=== PATIENT | female | born 1965 | race Caucasian/White ===

== ENCOUNTER 2020-04-06 16:50 | Emergency (ER) | payer BC ==
--- NOTE | 2020-04-06 16:56 | EDM.PDOC ---
ED HPI GENERAL MEDICAL PROBLEM - General Chief Complaint: Laceration Stated Complaint: laceration/dog bite Time Seen by Provider: 04/06/20 16:50 Source of Information: Reports: Patient, Old Records ([facility] chart/EMR) History Limitations: Reports: No Limitations - History of Present Illness INITIAL COMMENTS - FREE TEXT/NARRATIVE: The patient drove herself to the emergency room for evaluation of a dog bite of her left hand, which occurred at her home at about 2:30 PM this afternoon. She did clean the dog bite out with soap and water at home with no other treatment to this point. The patient's dog's immunizations, including rabies, etc. are up-to-date by her history with the patient also receiving to tetanus boosters during this last year. The dog has bitten her once before and also the patient once before secondary to aggressive food behavior, which also occurred today, with no other change in behavior, etc.. Note current increased stressors secondary to their other dog having to be put to sleep earlier in the week. No recent history of abdominal pain, heartburn, nausea, diarrhea, melena, gross hematochezia, or any food intolerance, including fatty foods, etc.. The patient also denies any recent fever, cough, wheezing, dyspnea, etc.. The patient is right-handed. Onset: Today, Sudden Onset Date: 04/06/20 Onset Time: 14:30 Duration: Constant Location: Reports: Upper Extremity, Left. Denies: Head, Face, Neck, Chest, Abdomen, Back, Pelvis, Radiates to Quality: Reports: Same as Previous Episode, Throbbing Severity: Mild Improves with: Reports: None Worsens with: Reports: None Context: Reports: Trauma (As above) Associated Symptoms: Reports: No Other Symptoms. Denies: Confusion, Chest Pain, Cough, Diaphoresis, Fever/Chills, Headaches, Loss of Appetite, Malaise, Nausea/Vomiting, Rash, Seizure, Shortness of Breath, Syncope, Weakness Treatments PRINCIPAL ENGINEER: Reports: Other (see below) (As above) Left Hand Pain Score (Numeric/FACES): 3 - Related Data Allergies Allergy/AdvReac Type Severity Reaction Status Date / Time ciprofloxacin [From Cipro] AdvReac Rash Verified 04/06/20 17:06 codeine AdvReac Vomiting Verified 04/06/20 17:06 metformin AdvReac Body Aches Verified 04/06/20 17:06 Penicillins AdvReac Rash Verified 04/06/20 17:06 Home Meds: Home Meds Aspirin [Children's Aspirin] 81 mg PO DAILY 04/06/20 [History] Cetirizine [ZyrTEC] 10 mg PO DAILY 04/06/20 [History] Clindamycin HCl 150 mg PO TID #30 capsule 04/06/20 [Rx] Losartan [Cozaar] 25 mg PO DAILY 04/06/20 [History] Omeprazole 40 mg PO DAILY 04/06/20 [History] atorvaSTATin [Lipitor] 10 mg PO BEDTIME 04/06/20 [History] glipiZIDE [Glucotrol XL] 5 mg PO BRK 04/06/20 [History] hydroCHLOROthiazide [Hydrochlorothiazide] 25 mg PO DAILY 04/06/20 [History] Past Medical History HEENT History: Reports: Allergic Rhinitis, Impaired Vision, Other (See Below) Other HEENT History: The patient wears glasses. Cardiovascular History: Reports: High Cholesterol, Hypertension Gastrointestinal History: Reports: GERD Musculoskeletal History: Reports: Osteoarthritis Endocrine/Metabolic History: Reports: Diabetes, Type II, Obesity/BMI 30+. Denies: Diabetes, Type I, Diabetes Mellitus, Type 3c, IDDM Social & Family History - Tobacco Use Tobacco Use Status *Q: Never Tobacco User Tobacco Use Within Last Twelve Months: No Used Tobacco, but Quit: No Smoking Cessation Information Provided To Patient: No Second Hand Smoke Exposure: No Second Hand Smoke Education Provided: No - Living Situation & Occupation Living situation: Reports: , with Family Occupation: Employed (Hospice nurse) ED ROS GENERAL - Review of Systems Review Of Systems: Comprehensive ROS is negative, except as noted in HPI. ED EXAM, SKIN/RASH Exam: See Below Exam Limited By: No Limitations General Appearance: Alert, WD/WN, No Apparent Distress Head: Atraumatic, Normocephalic. No: Facial Swelling, Facial Tenderness, Sinus Tenderness Neck: Normal Inspection, Supple, Non-Tender, Full Range of Motion. No: Lymphadenopathy (L), Lymphadenopathy (R), Thyromegaly Respiratory/Chest: No Respiratory Distress, Lungs Clear, Normal Breath Sounds, No Accessory Muscle Use, Chest Non-Tender. No: Pleural Rub, Retractions Cardiovascular: Normal Peripheral Pulses, Regular Rate, Rhythm, No Edema, No Gallop, No JVD, No Murmur, No Rub. No: Gallop/S3, Gallop/S4, Friction Rub Peripheral Pulses: 2+: Radial (L), Radial (R) GI/Abdominal: Normal Bowel Sounds, Soft, Non-Tender, No Organomegaly, No Distention, No Abnormal Bruit, No Mass, Other (Obese). No: Guarding (Female) Exam: Deferred Rectal (Female) Exam: Deferred Back Exam: Normal Inspection, Full Range of Motion. No: CVA Tenderness (L), CVA Tenderness (R), Muscle Spasm Extremities: Non-Tender (Mild palpation left hand secondary to dog bites), No Pedal Edema, Normal Capillary Refill, Limited Range of Motion (Mild in left hand secondary to swelling and discomfort), Other (Multiple dog bites over the dorsal surfaces of her left hand with at least 6 superficial bites noted with laceration about 0.5 cm with space between digits #1 and 2 with no foreign body, joint/tendon involvement, sign of fracture, etc. Note mild to moderate dorsal hand swelling and ecchymosis). No: Joint Swelling, Benedicto's Sign, Increased Warmth, Redness Neurological: Alert, Oriented, CN II-XII Intact, Normal Cognition, Normal Gait, Normal Reflexes, No Motor/Sensory Deficits Psychiatric: Normal Affect, Normal Mood Skin: Wound/Incision (Dog bites as above) Location, Skin: Upper Extremity, Left Characteristics: Other Associated features: Tenderness (As above), Swelling (As above) Lymphatic: No Adenopathy Course - Vital Signs Last Recorded V/S: Last Vital Signs Temp 36.4 C 04/06/20 16:53 Pulse 77 04/06/20 16:53 Resp 18 04/06/20 16:53 BP 127/84 04/06/20 17:34 Pulse Ox 99 04/06/20 16:53 Vital Signs - 24 hr 04/06/20 04/06/20 16:53 17:34 Temperature [ 36.4 C Temporal] Pulse, 77 Peripheral [ Pulse Oximetry] Respiratory 18 Rate Blood Pressure 163/83 H 127/84 [Left Upper Arm ] O2 Sat by Pulse 99 Oximetry - Orders/Labs/Meds Orders: Active Orders 24 hr Category Date Time Status Hand Comp Min 3V Lt [CR] Stat Exams 04/06/20 16:56 Taken Obtain Past Medical Record [OM.PC] Routine Oth 04/06/20 16:56 Active Labs: None Meds: Medications Discontinued Medications Generic Name Dose Route Start Last Admin Trade Name Verenice PRN Reason Stop Dose Admin Clindamycin HCl 300 mg 04/06/20 16:57 04/06/20 17:44 Cleocin PO 04/06/20 16:58 300 mg ONETIME ONE Administration Neomycin/Polymyxin/Bacitracin 1 each 04/06/20 17:39 04/06/20 17:44 Triple Antibiotic Oint TOP 04/06/20 17:40 1 each ONETIME ONE Administration - Radiology Interpretation Free Text/Narrative:: X-rays her left hand, complete, shows no evidence of fracture, dislocation, foreign body, etc. Departure - Departure Time of Disposition: 18:05 Disposition: Home, Self-Care 01 Condition: Good Clinical Impression: Osteoarthritis, Hypertension Dog bite Qualifiers: Encounter type: initial encounter Qualified Code(s): W54.0XXA - Bitten by dog, initial encounter Diabetes mellitus Qualifiers: Diabetes mellitus type: type 2 Diabetes mellitus marine oil terminal superintendent insulin use: without marine oil terminal superintendent use Diabetes mellitus complication status: without complication Qualified Code(s): E11.9 - Type 2 diabetes mellitus without complications - Discharge Information *PRESCRIPTION DRUG MONITORING PROGRAM REVIEWED*: Not Applicable *COPY OF PRESCRIPTION DRUG MONITORING REPORT IN PATIENT MARIAH: Not Applicable Prescriptions: Clindamycin HCl 150 mg PO TID #30 capsule Instructions: Animal Bite, Adult, [id number] Referrals: Rafia Cerrato PA [Primary Care Provider] - Forms: ED Department Discharge Additional Instructions: 1. Follow up with your regular provider in 10-14 days as needed, if symptoms persist. Bring these discharge instructions with you to that visit.. 2. Antibacterial soap wash/soak with subsequent antibacterial dressing such as Neosporin, etc. as directed 2 times per day until the wound or laceration site completely heals. Keep the area clean and dry with activity restrictions as discussed. Never use hydrogen peroxide for wound care. 3. Tylenol 650 mg by mouth every 4 hours and/or OTC ibuprofen 2-3 tabs by mouth every 6 hours with food as directed./needed. You may stagger these medications for 48-72 hours only, which essentially means that you are receiving a pain medication about every 2 hours. 4. Immediately after this visit verify that your cellular telephone's voicemail has been activated and is empty. Also verify that your home telephone's answering machine is operating properly and has space to receive messages. Note that it is sometimes necessary for us to be able to contact you at a later date to discuss your medical care. 5. Please remember that we are ALWAYS here for you and want to answer any questions you may have. Feel free to call the hospital any time and we call you back INDIRA. Sepsis Event Note (ED) - Focused Exam Vital Signs: Vital Signs Temp Pulse Resp BP Pulse Ox 04/06/20 17:34 127/84 04/06/20 16:53 36.4 C 77 18 163/83 H 99 - Problem List & Annotations (1) Dog bite SNOMED Code(s): 619202853, 542796615 Code(s): W54.0XXA - BITTEN BY DOG, INITIAL ENCOUNTER Status: Acute Priority: High Onset Date: 04/06/20 Annotation/Comment:: Her tetanus booster is up-to-date as is her dog's rabies shots by her history. The patient was counseled on her patch repetitive biting with safety precautions, animal sacrifice, etc. discussed. Various therapeutic options were also discussed, including loose laceration repair, etc. although wound care would be more beneficial if no laceration repair was conducted. Her lacerations were soaked extensively in Betadine solution with subsequent Neosporin dressing placed by the nurse. Wound care, activity restrictions, etc. were discussed. Clindamycin 300 mg p.o. given in the emergency room with further clindamycin therapy on an outpatient basis as per discharge instructions. She does not need a work excuse by her history. Note that the patient did have a video conference call with her regular provider, Rafia Cerrato PA-C, at the [facility], shortly prior to our evaluation in this facility with recommendation of further evaluation for possible laceration repair. Qualifiers: Encounter type: initial encounter Qualified Code(s): W54.0XXA - Bitten by dog, initial encounter (2) Diabetes mellitus SNOMED Code(s): 44471703 Code(s): E11.9 - TYPE 2 DIABETES MELLITUS WITHOUT COMPLICATIONS Status: Chronic Priority: Medium Annotation/Comment:: Stable by patient history Qualifiers: Diabetes mellitus type: type 2 Diabetes mellitus custodial insulin use: without marine oil terminal superintendent use Diabetes mellitus complication status: without complication Qualified Code(s): E11.9 - Type 2 diabetes mellitus without complications (3) Hypertension SNOMED Code(s): 66980208 Code(s): I10 - ESSENTIAL (PRIMARY) HYPERTENSION Status: Chronic Priority: Medium Annotation/Comment:: Blood pressure was initially somewhat elevated in the emergency room, however normalized without further treatment. Continue to observe closely by her regular provider. Qualifiers: Hypertension type: essential hypertension Qualified Code(s): I10 - Essential (primary) hypertension (4) Osteoarthritis SNOMED Code(s): 352076005 Code(s): M19.90 - UNSPECIFIED OSTEOARTHRITIS, UNSPECIFIED SITE Status: Chronic Priority: Medium Annotation/Comment:: Otherwise stable by patient history. Qualifiers: Osteoarthritis location: multiple joints Osteoarthritis type: primary Qualified Code(s): M89.49 - Other hypertrophic osteoarthropathy, multiple sites - Problem List Review Problem List Initiated/Reviewed/Updated: Yes - My Orders Last 24 Hours: My Active Orders 04/06/20 16:56 Hand Comp Min 3V Lt [CR] Stat Obtain Past Medical Record [OM.PC] Routine - Assessment/Plan Last 24 Hours: My Active Orders 04/06/20 16:56 Hand Comp Min 3V Lt [CR] Stat Obtain Past Medical Record [OM.PC] Routine Assessment:: As above Plan: As above. Extensive precautions were given to the patient, who is in agreement with the treatment plan. See Patient Instructions for further treatment and plan.
[2020-04-06] MEDS ORDERED: Clindamycin HCl 150 MG Cap PO ONE (16:57)
[2020-04-06] MEDS ORDERED: Bacitracin/Neomycin/Polymyxin B Oint 0.9 GM U/D Packet TOP ONE (17:39)
== END 2020-04-06 18:00 | disposition home or self-care (01) ==
LOC: LL.ED 16:50
DX: S61.452A Open bite of left hand, initial encounter (principal); M19.90 Unspecified osteoarthritis, unspecified site; I10 Essential (primary) hypertension; E11.9 Type 2 diabetes mellitus without complications; E78.00 Pure hypercholesterolemia, unspecified; K21.9 Gastro-esophageal reflux disease without esophagitis; E66.9 Obesity, unspecified; Z88.1 Allergy status to other antibiotic agents; Z88.5 Allergy status to narcotic agent; Z88.8 Allergy status to other drugs, medicaments and biological substances; Z88.0 Allergy status to penicillin; Z79.82 Long term (current) use of aspirin; Z79.84 Long term (current) use of oral hypoglycemic drugs; Z79.899 Other long term (current) drug therapy; W54.0XXA Bitten by dog, initial encounter; Y92.009 Unspecified place in unspecified non-institutional (private) residence as the place of occurrence of the external cause
CPT/HCPCS: 73130-LT; 99283; 99283-25; A9270-GY

== ENCOUNTER 2020-04-07 09:53 | Emergency (ER) | payer BC ==
[2020-04-07] MEDS ORDERED: Sodium Chloride 0.9% 10 ML Syringe FLUSH PRN (09:55)
[2020-04-07 10:29] LABS: CHLORIDE,CL 101 mmol/L (98-107); SODIUM,NA 137 mmol/L (136-145)
[2020-04-07] MEDS ORDERED: Clindamycin in 0.9 % Sod Chlor 600 MG in Premix Bag 1 BAG IV ONE ×2 (10:52)
--- NOTE | 2020-04-07 11:24 | EDM.PDOC ---
ED HPI GENERAL MEDICAL PROBLEM - General Chief Complaint: Laceration Stated Complaint: dogbite Time Seen by Provider: 04/07/20 10:00 Source of Information: Reports: Patient History Limitations: Reports: No Limitations - History of Present Illness INITIAL COMMENTS - FREE TEXT/NARRATIVE: Pt seen in ER yesterday for dog bite to left hand Wounds left open Pt given oral clindamycin Pt now with markedly increased pain and swelling Limited ROM bot h flexion and extension Some mild parathesias Increased bruising Minimal clear drainage from wounds Duration: Getting Worse Context: Reports: Other (Dog bite to left hand) Treatments MACADAM RAKER: Reports: Acetaminophen, NSAIDS Other Treatments MACADAM RAKER: Tylenol 1,000mg last @ 0500, Ibuprofen last at 0700 Left Hand Pain Score (Numeric/FACES): 8 - Related Data Allergies Allergy/AdvReac Type Severity Reaction Status Date / Time ciprofloxacin [From Cipro] AdvReac Rash Verified 04/07/20 10:06 codeine AdvReac Vomiting Verified 04/07/20 10:06 metformin AdvReac Body Aches Verified 04/07/20 10:06 Penicillins AdvReac Rash Verified 04/07/20 10:06 Home Meds: Home Meds Aspirin [Children's Aspirin] 81 mg PO DAILY 04/06/20 [History] Cetirizine [ZyrTEC] 10 mg PO DAILY 04/06/20 [History] Clindamycin HCl 150 mg PO TID #30 capsule 04/06/20 [Rx] Losartan [Cozaar] 25 mg PO DAILY 04/06/20 [History] Omeprazole 40 mg PO DAILY 04/06/20 [History] atorvaSTATin [Lipitor] 10 mg PO BEDTIME 04/06/20 [History] glipiZIDE [Glucotrol XL] 5 mg PO BRK 04/06/20 [History] hydroCHLOROthiazide [Hydrochlorothiazide] 25 mg PO DAILY 04/06/20 [History] Past Medical History HEENT History: Reports: Allergic Rhinitis, Impaired Vision, Other (See Below) Other HEENT History: The patient wears glasses. Cardiovascular History: Reports: High Cholesterol, Hypertension Respiratory History: Reports: None Gastrointestinal History: Reports: GERD Genitourinary History: Reports: None Musculoskeletal History: Reports: Osteoarthritis Neurological History: Reports: None Psychiatric History: Reports: None Endocrine/Metabolic History: Reports: Diabetes, Type II, Obesity/BMI 30+ Immunologic History: Reports: None Dermatologic History: Reports: None - Past Surgical History Female Surgical History: Reports: None Social & Family History - Tobacco Use Tobacco Use Status *Q: Never Tobacco User Second Hand Smoke Exposure: No - Caffeine Use Caffeine Use: Reports: Coffee, Soda - Recreational Drug Use Recreational Drug Use: No - Living Situation & Occupation Living situation: Reports: , with Family Occupation: Employed (Hospice nurse) ED ROS GENERAL - Review of Systems Review Of Systems: See Below Musculoskeletal: Reports: Other (Left hand with dog bite) ED EXAM, SKIN/RASH Exam: See Below Exam Limited By: No Limitations Extremities: Joint Swelling, Limited Range of Motion, Increased Warmth, Other (Left hand with swelling to dorsum of hand Multiple bite wounds No drainage Increased erythema and ecchymosis Limited ROM Mild parathesias) Course - Vital Signs Last Recorded V/S: Last Vital Signs Temp 97.8 F 04/07/20 10:00 Pulse 83 04/07/20 10:00 Resp 16 04/07/20 10:00 BP 158/79 H 04/07/20 10:00 Pulse Ox 100 04/07/20 10:00 - Orders/Labs/Meds Orders: Active Orders 24 hr Category Date Time Status CULTURE BLOOD [BC] Stat Lab 04/07/20 09:54 Ordered CULTURE BLOOD [BC] Stat Lab 04/07/20 10:15 Received Sodium Chloride 0.9% [Saline Flush] Med 04/07/20 09:55 Active 10 ml FLUSH ASDIRECTED PRN Blood Culture x2 Reflex Set [OM.PC] Stat Oth 04/07/20 09:54 Ordered Saline Lock Insert [OM.PC] Routine Oth 04/07/20 09:55 Ordered Medication Orders Sodium Chloride (Saline Flush) 10 ml FLUSH ASDIRECTED PRN PRN Reason: Keep Vein Open Last Admin: 04/07/20 11:02 Dose: 10 ml Documented by: JOSE RAUL Labs: Laboratory Tests 04/07/20 04/07/20 04/07/20 Range/Units 10:00 10:00 10:00 WBC 9.8 (4.0-10.2) K/uL RBC 4.57 (3.77-5.09) M/uL Hgb 13.3 (11.7-15.5) g/dL Hct 38.8 (34.0-46.0) % MCV 84.9 (84.0-98.0) fL MCH 29.1 (28.2-33.3) pg MCHC 34.3 (31.7-36.0) g/dL RDW 12.3 (11.2-14.1) % Plt Count 195 (150-350) K/uL Neut % (Auto) 73.1 (45.0-80.0) % Lymph % (Auto) 17.8 (10.0-50.0) % [place] % (Auto) 8.1 (2.0-14.0) % Eos % (Auto) 0.7 (0.0-5.0) % Baso % (Auto) 0.3 (0.0-2.0) % Neut # (Auto) 7.18 H (1.40-7.00) K/uL Lymph # (Auto) 1.75 (0.50-3.50) K/uL [place] # (Auto) 0.80 (0.00-1.00) K/uL Eos # (Auto) 0.07 (0.00-0.50) K/uL Baso # (Auto) 0.03 (0.00-0.20) K/uL Sodium 137 (136-145) mmol/L Potassium 3.4 L (3.5-5.1) mmol/L Chloride 101 (98-107) mmol/L Carbon Dioxide 25.5 (21.0-32.0) mmol/L BUN 18 (7-18) mg/dL Creatinine 0.60 (0.51-1.17) mg/dL Est Cr Clr Drug Dosing 84.78 mL/min Estimated GFR (MDRD) > 60 mL/min Glucose 148 H (74-106) mg/dL Lactic Acid 1.8 (0.4-2.0) mmol/L Calcium 9.4 (8.5-10.1) mg/dL Meds: Medications Generic Name Dose Route Start Last Admin Trade Name Freq PRN Reason Stop Dose Admin Sodium Chloride 10 ml 04/07/20 09:55 04/07/20 11:02 Saline Flush FLUSH 10 ml ASDIRECTED PRN Administration Keep Vein Open Discontinued Medications Generic Name Dose Route Start Last Admin Trade Name Freq PRN Reason Stop Dose Admin Clindamycin/Sodium Chloride 50 mls @ 150 mls/hr 04/07/20 10:52 04/07/20 10:59 600 mg/ Premix IV 04/07/20 11:11 150 mls/hr ONETIME ONE Administration - Re-Assessments/Exams Free Text/Narrative Re-Assessment/Exam: 04/07/20 11:26 Pt given IV Clindamycin in ER D/W [facility] ER Will accept in transfer Departure - Departure Time of Disposition: 11:30 Disposition: DC/Tfer to [facility] 02 Clinical Impression: Dog bite Qualifiers: Encounter type: initial encounter Qualified Code(s): W54.0XXA - Bitten by dog, initial encounter - Discharge Information *PRESCRIPTION DRUG MONITORING PROGRAM REVIEWED*: Not Applicable *COPY OF PRESCRIPTION DRUG MONITORING REPORT IN PATIENT MARIAH: Not Applicable Referrals: Rafia Cerrato PA [Primary Care Provider] - Sepsis Event Note (ED) - Evaluation Sepsis Screening Result: No Definite Risk - Focused Exam Vital Signs: Vital Signs Temp Pulse Resp BP Pulse Ox 04/07/20 10:00 97.8 F 83 16 158/79 H 100 - My Orders Last 24 Hours: My Active Orders 04/07/20 09:54 CULTURE BLOOD [BC] Stat Blood Culture x2 Reflex Set [OM.PC] Stat 04/07/20 09:55 Sodium Chloride 0.9% [Saline Flush] 10 ml FLUSH ASDIRECTED PRN Saline Lock Insert [OM.PC] Routine 04/07/20 10:15 CULTURE BLOOD [BC] Stat - Assessment/Plan Last 24 Hours: My Active Orders 04/07/20 09:54 CULTURE BLOOD [BC] Stat Blood Culture x2 Reflex Set [OM.PC] Stat 04/07/20 09:55 Sodium Chloride 0.9% [Saline Flush] 10 ml FLUSH ASDIRECTED PRN Saline Lock Insert [OM.PC] Routine 04/07/20 10:15 CULTURE BLOOD [BC] Stat
== END 2020-04-07 11:40 ==
LOC: LL.ED 09:53
DX: S61.452A Open bite of left hand, initial encounter (principal); I10 Essential (primary) hypertension; E78.00 Pure hypercholesterolemia, unspecified; K21.9 Gastro-esophageal reflux disease without esophagitis; E11.9 Type 2 diabetes mellitus without complications; E66.9 Obesity, unspecified; Z88.0 Allergy status to penicillin; Z88.5 Allergy status to narcotic agent; Z68.36 Body mass index [BMI] 36.0-36.9, adult; Z88.1 Allergy status to other antibiotic agents; Z88.8 Allergy status to other drugs, medicaments and biological substances; Z79.82 Long term (current) use of aspirin; Z79.84 Long term (current) use of oral hypoglycemic drugs; Z79.899 Other long term (current) drug therapy; W54.0XXA Bitten by dog, initial encounter
CPT/HCPCS: 36415; 80048; 83605; 85025; 87040; 96365; 99284; 99285; J3490